=== PATIENT | female | born 1970 | race Two or more races ===

== ENCOUNTER 2021-03-21 10:57 | Emergency (ER) | payer MEDICAID, OTHER ==
[~2021-03-21] VITALS: Ht 165.1 cm; Wt 79.4 kg
[~2021-03-21 10:57] MED LIST: FLUO10CA26 PO; TRAZ-257 PO
--- NOTE | 2021-03-21 11:08 | NUR ---
Sharmaine FRANKS, C/O ANXIETY AFTER HAVING AN ARGUMENT WITH BOYFRIEND, DENIES DRUG USE. Aox4, no sob noted, no s/o any acute distress. able to to make needs known. denies pain at this time. breathing even and unlabored. Dr Rascon at bedside. will continue with plan of care
[2021-03-21] MEDS ORDERED: LORAZEPAM 0.5 MG TABLET ONE (11:38)
[2021-03-21] MEDS ORDERED: ONDANSETRON 4 MG TAB.RAPDIS ONE (11:38)
[2021-03-21] MEDS ORDERED: KETOROLAC TROMETHAMINE 15 MG/ML VIAL ONE (11:38)
--- NOTE | 2021-03-21 11:48 | NUR ---
IV started and blood drawned and sent to lab.
[2021-03-21 11:55] LABS: BASOPHILS # (AUTO) 0.1 K/uL (0.0-0.2); BASOPHILS % (AUTO) 0.8 % (0.0-2.0); EOSINOPHILS % (AUTO) 4.5 % (0.0-6.0); HEMATOCRIT 43 % (33-45); HEMOGLOBIN 14.5 g/dL (11.5-14.8); LYMPHOCYTES # (AUTO) 1.5 K/uL (0.8-4.8); LYMPHOCYTES % (AUTO) 13.7 % (20.0-44.0); MEAN CORPUSCULAR HGB CONC 34 g/dl (31.0-36.0); MEAN CORPUSCULAR VOLUME 87 fL (82-100); MONOCYTES # (AUTO) 0.4 K/uL (0.1-1.30); MONOCYTES % (AUTO) 3.9 % (2.0-12.0); NEUTROPHILS # (AUTO) 8.4 K/uL (1.8-8.9); NEUTROPHILS % (AUTO) 77.1 % (43.0-81.0); PLATELET COUNT (AUTO) 387 K/uL (150-450); RED BLOOD CELL COUNT(AUTO) 4.94 MIL/uL (4.0-5.2)
[2021-03-21] MEDS ORDERED: LORAZEPAM 1 MG TABLET PO ONE (12:00)
[2021-03-21] MEDS ORDERED: KETOROLAC TROMETHAMINE INJ 30 MG/ML VIAL IM ONE (12:00)
[2021-03-21] MEDS ORDERED: ONDANSETRON 4 MG TAB.RAPDIS SL ONE (12:00)
[2021-03-21 12:04] LABS: CALCIUM, SERUM 9.5 mg/dL (8.5-10.1); CARBON DIOXIDE 20 mmol/L (21-32); CHLORIDE 100 mmol/L (98-107); CREATININE 1.1 mg/dL (0.6-1.3); GLUCOSE 155 mg/dL (74-106); POTASSIUM 3.7 mmol/L (3.5-5.1); SODIUM SERUM 138 mmol/L (136-145); UREA NITROGEN, BLOOD 20 mg/dL (7-18)
[2021-03-21 12:53] LABS: BAND % (MANUAL) 1 % (0.0-5.0); EOSINOPHILS % (MANUAL) 5 % (0-4); LYMPHOCYTES % (MANUAL) 11 % (16-48); MONOCYTES % (MANUAL) 2 % (0-11.0); NEUTROPHILS % (MANUAL) 81 (42-76)
[2021-03-21 13:16] VITALS: BP 126/88
--- NOTE | 2021-03-21 13:16 | NUR ---
Patient discharged to home in stable condition. Written and verbal after care instructions given. Patient verbalizes understanding of instruction.
== END 2021-03-21 13:16 | disposition home or self-care (01) ==
LOC: ER 11:00
DX: F41.9 Anxiety disorder, unspecified (principal); R07.89 Other chest pain; F32.9 Major depressive disorder, single episode, unspecified; Z98.890 Other specified postprocedural states; Z60.2 Problems related to living alone; Z79.899 Other long term (current) drug therapy
CPT/HCPCS: 36415; 71045; 80048; 84484; 85007; 85025; 93005; 96372; 99285; J1885; Q0162

== ENCOUNTER 2022-06-19 22:27 | Emergency (ER) | payer OTHER ==
[~2022-06-19] VITALS: Ht 165.1 cm; Wt 79.4 kg
[2022-06-19 22:39] VITALS: BP 106/73
[2022-06-19] MEDS ORDERED: NABU-141 PO (22:41)
[2022-06-19] MEDS ORDERED: KETOROLAC TROMETHAMINE INJ 60 MG/2 ML VIAL IM ONE ×2 (22:41→23:00)
[2022-06-19] MEDS ORDERED: LORAZEPAM 0.5 MG TABLET ONE (22:42)
[2022-06-19] MEDS ORDERED: LORAZEPAM 1 MG TABLET PO ONE (23:00)
== END 2022-06-19 23:18 | disposition home or self-care (01) ==
LOC: ER 22:38
DX: S10.93XA Contusion of unspecified part of neck, initial encounter (principal); S50.11XA Contusion of right forearm, initial encounter; F32.A Depression, unspecified; Z87.442 Personal history of urinary calculi; Z90.710 Acquired absence of both cervix and uterus; Z60.2 Problems related to living alone; Z79.899 Other long term (current) drug therapy; Y08.89XA Assault by other specified means, initial encounter; Y93.89 Activity, other specified; Y92.89 Other specified places as the place of occurrence of the external cause; Y99.8 Other external cause status
CPT/HCPCS: 99283; 96372; J1885